=== PATIENT | male | born 1995 | race Hispanic/Latino ===

== ENCOUNTER 2018-11-21 19:26 | Emergency (ER) | payer OTHER ==
[~2018-11-21] VITALS: Ht 170.2 cm; Wt 86.4 kg
--- NOTE | 2018-11-21 20:02 | REP ---
Clinical: Acute chest pain . Comparison: None . Findings: The mediastinum and cardiac silhouette are stable and within normal limits for portable technique. The lung alvarado are clear without acute consolidation, effusion, or pneumothorax. Skeletal structures are intact. Impression: No acute cardiopulmonary process appreciated. Electronically Signed by Abdiaziz Serrano MD 11/21/2018 07:54 P
[2018-11-21] MEDS ORDERED: ALBUTEROL SULFATE 2.5 MG/0.5 ML INH NEB SOLN INH ONE (21:15)
[2018-11-21] MEDS ORDERED: VENTAER INH (21:41)
[2018-11-21 21:52] VITALS: BP 145/81
--- NOTE | 2018-11-22 10:23 | ECGEPIP ---
Stationary ECG Study [facility] - ED Test Date: 2018-11-21 Pat Name: ZELALEM FRANCES Department: Room: - Gender: M [employer]: sb : 1995 Requested By: CIRO Gagnon Order Number: [id number] Reading MD: Edelmira Chacon Measurements Intervals [place] Rate: 71 P: 34 [place]: 164 QRS: 38 QRSD: 88 T: 24 QT: 343 QTc: 374 Interpretive Statements SINUS RHYTHM WITH SINUS ARRHYTHMIA EARLY REPOLARIZATION, CLINICAL CORRELATION NO PRIOR FOR COMPARISON Electronically Signed On 11-22-2018 10:22:41 EDT by Edelmira Chacon
== END 2018-11-21 21:51 | disposition home or self-care (01) ==
LOC: M ED 19:26
DX: J45.990 Exercise induced bronchospasm (principal)

== ENCOUNTER → 2018-11-28 | Outpatient (CLI) | payer OTHER ==
[~2018-11-28] MED LIST: VENTAER INH
--- NOTE | 2018-11-28 15:58 | PFTRPT ---
Height: 67.00 Inches Weight: 190.00 Lbs BSA: 1.98 Diagnosis: SOB DATE OF PROCEDURE: 11/28/2018 ORDERED BY: Rama Reyna Spirometry: Study of excellent technical quality. Forced vital capacity normal. FEV1 in proportion. Obstructive index is, therefore, normal. Flow Volume Loop: Expiratory limb of the flow volume loop is normal. Lung Volumes: Total lung capacity is normal. Residual volume is in proportion. Diffusing Capacity: Diffusing capacity is borderline but does correct for alveolar volume. Hemoglobin: No hemoglobin ordered for correction. Airway Mechanics: Airway resistance and conductance are normal. IMPRESSION: Probably normal study. MTDD
== END ==
LOC: M CARPUL 10:22 → EDUNIT# 11:00
PROVIDERS: ATTEND Nurse Practitioner Family
DX: R07.9 Chest pain, unspecified (principal)